=== PATIENT | female | born 1980 | race Asian ===

== ENCOUNTER 2018-06-21 22:18 | Emergency (ER) | payer OTHER, SELFPAY ==
[2018-06-21 22:23] VITALS: BP 165/102; PULSE 65; RESP 15; TEMP 36.8; O2SAT 100; BMI 27.7
--- NOTE | 2018-06-21 23:16 | PC.NURSE ---
Pt with history of HTN. Does take medication for HTN. This evening, she check bp and it was t 172/112. States Had headache at that time. Pt come in to the ER. Blood pressure continuing to trend lower.
[2018-06-21 23:19] VITALS: BP 137/96; PULSE 74; RESP 17; O2SAT 96
[2018-06-22] MEDS: ACETAMINOPHEN 325 MG TABLET 650 MG PO (00:01)
[2018-06-22 00:02] VITALS: BP 141/97; PULSE 65; RESP 16; O2SAT 98
[2018-06-22 00:07] LABS: Add Manual Diff / Slide Review NO; Basophils Absolute Auto 0 /uL (0-100); Basophils Percent Auto 0.6 % (0-2); Eosinophils Absolute Auto 300 /uL (0-450); Eosinophils Percent Auto 3.2 % (2-4); Hematocrit 39.9 % (36-46); Hemoglobin 13.6 g/dL (12.0-16.0); Lymphocytes Absolute Auto 2100 /uL (1100-4500); Lymphocytes Percent Auto 25.4 % (25-40); Mean Corpuscular HGB Conc 34.2 % (30-36); Mean Corpuscular Hemoglobin 30.4 PG (26-34); Mean Corpuscular Volume 89.1 fL (80-100); Monocytes Absolute Auto 500 /uL (0-900); Monocytes Percent Auto 5.6 % (3-14); Neutrophils Absolute Auto 5300 /uL (1500-7000); Neutrophils Percent Auto 65.2 % (50-75); Platelet Count 339 X10^3/uL (150-400); Red Blood Cell Count 4.48 X10^6/uL (4.0-5.2); White Blood Cell Count 8.1 X10^3/uL (4.5-11.0)
[2018-06-22 00:17] LABS: BUN Creatinine Ratio 18.8 (6-22); Blood Urea Nitrogen 15 mg/dL (7-17); Calcium 9.8 mg/dL (8.4-10.2); Carbon Dioxide 30 mmol/L (22-32); Chloride 101 mmol/L (98-107); Estimated Glomerular Filt Rate > 60.0 mL/min (>60); Glucose 115 mg/dL (70-100); HEMOLYSIS < 15 (0-50); Potassium 3.3 mmol/L (3.4-5.1); Sodium 141 mmol/L (137-145)
[2018-06-22 00:31] VITALS: BP 136/88; PULSE 64; RESP 17; O2SAT 99
[2018-06-22 01:00] VITALS: BP 125/81; PULSE 62; RESP 15; O2SAT 97
[2018-06-22 01:30] VITALS: BP 108/80; PULSE 63; RESP 18; O2SAT 98
--- NOTE | 2018-06-22 01:44 | ED_ITS ---
HPI - General Adult General Chief complaint: Hypertension Stated complaint: elevated BP Time Seen by Provider: 06/21/18 23:27 Source: patient Mode of arrival: ambulatory Limitations: no limitations History of Present Illness HPI narrative: The patient has hypertension. Her systolic blood pressure is usually about 140. She was not feeling well earlier, she had headache. She has GERD her stomach was bother mildly. When she checked her blood pressure she was 150s systolic. On a repeat check she was 170s. She has a headache. She has no visual changes. She denies chest pain or dyspnea. Upon arrival, her blood pressure had improved. She has no palpitations, chest pain or dizziness. She has no abdominal discomfort. Other than a mild headache, she is feeling well. She is compliant with medications. She has no history suggesting a hypertensive crisis. She is generally healthy other than hypertension and GERD. Related Data Home Medications Medication Instructions Recorded Confirmed carvedilol 25 mg PO BID 06/21/18 06/21/18 chlorthalidone 25 mg PO DAILY 06/21/18 06/21/18 omeprazole 20 mg PO DAILY 06/21/18 06/21/18 potassium chloride 20 meq PO DAILY 06/21/18 06/21/18 Allergies Allergy/AdvReac Type Severity Reaction Status Date / Time No Known Drug Allergies Allergy Verified 06/21/18 22:23 Review of Systems Review of Systems ROS Unobtainable: All systems reviewed & are unremarkable except as noted in HPI and below Constitutional Denies chills, Denies fever(s), Reports headache(s) (Mild), Denies lethargy and Denies weakness Eyes Denies change in vision, Denies eye discharge, Denies irritation and Denies loss of vision ENT Ears, Nose, Mouth, and Throat: Denies change in voice, Reports headache(s) (Mild ), Denies neck pain and Denies sore throat Cardiovascular Denies chest pain, Denies diaphoresis, Denies rapid heart rate, Denies irregular heart rhythm, Denies lightheadedness, Denies palpitations, Denies dyspnea, Denies dyspnea on exertion and Denies orthopnea Respiratory Denies cough, Denies dyspnea, Denies dyspnea on exertion and Denies wheezing Gastrointestinal Gastrointestinal: Reports abdominal pain (Mild epigastric discomfort), Denies change in bowel habits, Denies diarrhea, Denies nausea and Denies vomiting Musculoskeletal Denies back pain and Denies neck pain Integumentary/Breasts Denies pruritus, Denies erythema, Denies rash and Denies wounds Neurologic Reports headache(s) (Mild), Denies loss of vision and Denies weakness Endocrine Denies palpitations Allergic/Immunologic Denies wheezing PFSH Medical History GERD (gastroesophageal reflux disease) (Acute) Hypertension (Acute) Surgical History No history of previous surgery (Acute) Social History Smoking Status: Smoker, status unknown Exam Initial Vital Signs Initial Vital Signs: Vital Signs Temperature 98.2 F 06/21/18 22:23 Pulse Rate 65 06/21/18 22:23 Respiratory Rate 15 06/21/18 22:23 Blood Pressure 165/102 H 06/21/18 22:23 Pulse Oximetry 100 06/21/18 22:23 Const General: cooperative and well developed Nutritional Appearance: well nourished Orientation: alert, awake, oriented x3 and not confused HENMT Head: normocephalic and atraumatic Ears: external ears normal and TM's normal bilaterally Nose: external nose normal and No nasal discharge Face and sinus: sinuses nontender, face symmetric, no sinus tenderness and No dry mucous membranes Mouth: oral mucosae normal and moist mucous membranes Teeth and gingiva: dentition normal Throat: tonsils normal and uvula midline Eyes General: appearance normal, both eyes and all related structures Eyelids: eyelids normal Conjunctivae: conjunctivae normal Sclera: sclerae normal Pupils: PERRL EOM: EOM intact bilaterally Neck Neck: normal visual inspection, trachea midline, No lymphadenopathy, No midline deformity, No tender and No JVD Lymphatic: No lymphadenopathy Chest Chest: normal inspection of the chest Resp Effort & Inspection: normal respiratory effort, able to speak in complete sentences, no respiratory distress and no use of accessory muscles Auscultation: clear to auscultation bilaterally, no rales, no rhonchi and no wheezes Cardio Rate: regular rate Rhythm: regular rhythm Heart Sounds: no click, no gallops, no murmurs and no rubs Pulses: normal peripheral pulses GI Inspection: non-distended Palpation: soft, no hepatosplenomegaly, No guarding, No pulsatile mass and No tender Auscultation: normal bowel sounds Skin General: no rashes or lesions noted, No jaundice and No petechiae Neuro General: alert, oriented x3, gait normal and no focal motor deficits Speech: speech normal Motor: muscle tone normal throughout Extrem General: full ROM and no pedal edema Psych Appearance: well kempt Mental Status: mental status grossly normal Attitude: cooperative Thought Content: normal and suicidality Judgment: judgment good Course Orders Ordered: ED Orders 06/21/18 23:50 Basic Metabolic Panel Stat Complete Blood Count AUTO DIFF Stat Discontinued Medications Acetaminophen (Tylenol) 650 mg PO Q4HR PRN PRN Reason: As Needed for Fever/Mild Pain Last Admin: 06/22/18 00:01 Dose: 650 mg Vital Signs - 8 hr 06/21/18 22:23 06/21/18 23:19 06/22/18 00:02 Temperature 98.2 F Pulse Rate 65 74 65 Respiratory Rate 15 17 16 Blood Pressure 165/102 H Blood Pressure [Left Arm] 137/96 H 141/97 H Pulse Oximetry 100 96 98 06/22/18 00:31 06/22/18 01:00 06/22/18 01:30 Temperature Pulse Rate 64 62 63 Respiratory Rate 17 15 18 Blood Pressure Blood Pressure [Left Arm] 136/88 125/81 108/80 Pulse Oximetry 99 97 98 Medical Decision Making Lab Data Result diagrams: 06/21/18 23:50 06/21/18 23:50 Lab Results 06/21/18 06/21/18 Range/Units 23:50 23:50 WBC 8.1 (4.5-11.0) X10^3/uL RBC 4.48 (4.0-5.2) X10^6/uL Hgb 13.6 (12.0-16.0) g/dL Hct 39.9 (36-46) % MCV 89.1 (80-100) fL MCH 30.4 (26-34) PG MCHC 34.2 (30-36) % RDW 13.0 (11.6-14.8) % Plt Count 339 (150-400) X10^3/uL Neut % (Auto) 65.2 (50-75) % Lymph % (Auto) 25.4 (25-40) % [place] % (Auto) 5.6 (3-14) % Eos % (Auto) 3.2 (2-4) % Baso % (Auto) 0.6 (0-2) % Neut # (Auto) 5300 (9029-3450) /uL Lymph # (Auto) 2100 (0514-0956) /uL [place] # (Auto) 500 (0-900) /uL Eos # (Auto) 300 (0-450) /uL Baso # (Auto) 0 (0-100) /uL Sodium 141 (137-145) mmol/L Potassium 3.3 L (3.4-5.1) mmol/L Chloride 101 (98-107) mmol/L Carbon Dioxide 30 (22-32) mmol/L BUN 15 (7-17) mg/dL Creatinine 0.80 (0.52-1.04) mg/dL Estimated GFR > 60.0 (>60) mL/min BUN/Creatinine Ratio 18.8 (6-22) Glucose 115 H (70-100) mg/dL Calcium 9.8 (8.4-10.2) mg/dL Point of Care Testing Test Results Negative Urine Dip Bedside Urine Glucose Negative Bedside Urine Bilirubin - Negative Bedside Urine Ketone - Negative Urine Specific [place] 1.005 Bedside Urine Occult Blood - Negative Bedside Urine pH 7.0 Bedside Urine Protein - Negative Bedside Urine Urobilinogen - Negative Bedside Urine Nitrite - Negative Bedside Urine Leukocytes - Negative Esterase Point of care testing: Point of Care Testing Test Results Negative Urine Dip Bedside Urine Glucose Negative Bedside Urine Bilirubin - Negative Bedside Urine Ketone - Negative Urine Specific [place] 1.005 Bedside Urine Occult Blood - Negative Bedside Urine pH 7.0 Bedside Urine Protein - Negative Bedside Urine Urobilinogen - Negative Bedside Urine Nitrite - Negative Bedside Urine Leukocytes - Negative Esterase MDM Narrative Medical decision making narrative: The patient has been in normal sinus rhythm since arrival. Her blood pressure improved to 125 systolic, eventually 107 systolic. She is sleeping, she is asymptomatic. She seems to have a benign headache. Her blood pressures is not a issue currently. She should probably follow up with her doctor regarding her blood pressure on a regular basis, as she says she is normally running in the 140 range. Discharge Plan Departure Patient Disposition: Home Clinical Impression: Hypertension, Headache Discharge Date/Time: 06/22/18 01:53 Interventions: ED Discharge Assessment Last Done: 06/22/18 01:53 Instructions: DI for High Blood Pressure Activity Restrictions/Additional Instructions: Take Tylenol as needed for headaches. Continue your blood pressure medications. Keep a record of your daily blood pressures. I would recommend he follow up with her doctor to discuss her blood pressure management. Return to the ER as needed. Prescriptions: No Action carvedilol 25 mg Tablet 25 mg PO BID RF: 0 chlorthalidone 25 mg Tablet 25 mg PO DAILY RF: 0 omeprazole 20 mg Capsule,Delayed Release(Dr/Ec) 20 mg PO DAILY RF: 0 potassium chloride 20 mEq Tablet Extended Release 20 meq PO DAILY RF: 0
== END 2018-06-22 01:53 | disposition home or self-care (01) ==
PROVIDERS: Emergency Provider Emergency Medicine
DX: I10 Essential (primary) hypertension (principal); R51 Headache
CPT/HCPCS: 36415; 80048; 81003; 81025; 85025; 99283